=== PATIENT | female | born 1960 | race Caucasian/White ===

== ENCOUNTER 2018-09-04 11:53 | Day surgery (SDC) | payer BC, SELFPAY ==
[2018-09-04 12:20] LABS: Hematocrit 41.1 % (37-47); Hemoglobin 13.6 g/dl (12.0-15.0); Mean Corp Hgb Conc 33.1 g/gl (32-36); Mean Corpuscular Volume 84.7 fL (81-99); Mean Platelet Vol. 9.4 fl (6.2-12.0); Platelet Count 310 K/mm3 (150-450); RBC Distribution Width CV 13.1 % (11.6-14.6); RBC Distribution Width SD 40.2 fl (35.1-43.9); Red Blood Count 4.85 M/mm3 (4.2-5.4); White Blood Count 7.9 K/mm3 (4.4-11.0)
[2018-09-04 12:22] VITALS: BP 140/78; PULSE 90; RESP 16; TEMP 37.3; O2SAT 99; BMI 29.5
[2018-09-04] MEDS: Acetaminophen 500 MG Tablet 1000 MG PO (12:29)
[2018-09-04 12:31] LABS: Scan Indicated on CBC? Y/N NO
--- NOTE | 2018-09-04 13:35 | EMB_PTH ---
PATIENT: AMARJIT SPENCER LOC: [facility] [place] U#:[id number] AGE/SX: 58/F ROOM: RE09/04/[address]: Dr. Nuris Gutiérrez MD : [id number] BED: DIS: 09/04/2018 SPEC #: [id number] RECD: 09/05/18 10:22 STATUS: JULES FRANC #: [id number] VISHNU: 09/04/18 13:[address]: Nuris Gutiérrez DEPT: SURGICAL PATHOLOGY RECD BY: Levon Santiago ENTERED: 09/05/18 11:59 SP TYPE: ENDOM BX/C YAHIR DR: Dr. Wenceslao Hernández, DO Tissues: Endometrium, NOS Procedures: Surgery Specimen Level IV HEADER OPERATION: Hysteroscopy, dilation and curettage PRE-OP DIAGNOSIS: Postmenopausal bleeding TISSUE SUBMITTED: Endometrial curettings MICROSCOPIC DIAGNOSIS Endometrial curettings: Fragments of benign ectocervical epithelium with mild acute and chronic inflammation. See comment. SJ:benjamín 09/08/18 COMMENT Endometrial tissue is not identified in the submitted specimen. Correlation with clinical findings and appropriate follow up are necessary. MICROSCOPIC DESCRIPTION Slides are reviewed. GROSS DESCRIPTION Received in fixative is one container labeled with the patient's name and designated endometrial curettings. The specimen consists of multiple minute fragments of light herring soft tissue that in aggregate measure 0.6 x 0.5 x <0.1 cm. The specimen is totally submitted in one cassette. / AM:benjamín 09/05/18 TC:can not code CPT: 31304
--- NOTE | 2018-09-04 15:51 | PCM.DC.D&C ---
Discharge Diet: No Restrictions Discharge Activity: Return to Normal Activity, May Shower, May Take a Tub Bath - in 2 weeks. Allergies/Adverse Reactions: Allergies iodine Allergy (Verified 08/28/18 08:16) Hives Penicillins [PCN] Allergy (Verified 08/28/18 08:16) Unknown shellfish derived Allergy (Verified 08/28/18 08:16) Hives Medications to take at Discharge Aspirin [Aspirin, Baby] 81 mg PO QHS 08/28/18 Atenolol [Tenormin] 25 mg PO QHS 08/28/18 Biotin 800 mcg PO DAILY 08/28/18 Diazepam [Valium] 5 mg PO Q8 PRN 08/28/18 Lisinopril 20 mg PO QHS 08/28/18 Loratadine [Claritin] 10 mg PO DAILY 08/28/18 Multivitamin [Multiple Vitamins] 1 each PO DAILY 08/28/18 [place]-3/Dha/Epa/Fish Oil [[place] 3 500 Softgel] 1 each PO DAILY 08/28/18 Primary Care Physician: Wenceslao Hernández DO [Primary Care Provider] - Test Results: Test results from this visit will be discussed in further detail at your follow-up appointment, if applicable. Please Follow Up With: Nuris Gutiérrez MD - [phone] When: 2-4 weeks or as needed
--- NOTE | 2018-09-04 15:52 | PCM.OPRPT ---
Report of Operation Date of Procedure: 09/04/18 Pre-Operative Diagnosis: Postmenopausal bleeding Post-Operative Diagnosis: Postmenopausal bleeding Surgery/Procedure Performed:: Hysteroscopy dilation and curettage Description of Surgical Findings:: Normal-appearing cervix and vagina. Anteverted uterus. Normal-appearing endometrial cavity. product design engineer: Simran CONTE Type of Anesthesia:: MAC/Supplemental/Local Special Medications: none Specimen's removed: endometrial curettings Drains: none Estimated Blood Loss (mL): 10 Fluids Replaced: 500cc LR Description of Procedure: The patient was taken to the OR where she was prepped and draped in dorsal lithotomy position. The weighted speculum was placed in the vagina and the anterior lip of the cervix was grasped with a single-tooth tenaculum. A paracervical block was administered with 1% lidocaine with 1-100,000 epinephrine solution. The cervix was dilated serially with Hegar dilators. The 5mm hysteroscope was placed into the uterine cavity and the above findings were noted. Bilateral tubal ostia were identified. The hysteroscope was removed. A gentle sharp curettage was done of the uterine cavity. The instruments were removed from the vagina. The specimen was handed off and sent to pathology. All sponge and needle counts were correct. Vaginal sweep was performed by me. The patient was awakened and taken to the recovery room in stable condition. PRXhion fluid management system was used and the fluid deficit was calculated to be 0 cc of normal saline Findings: Endometrial cavity: Normal, no fibroids or polyps noted Cervix: Normal Vagina: Normal Grafts/Implants Used: none - Complications none - Admit VTE Documentation VTE Present on Admission: No VTE Mechan Device Prophylaxis: SCD's VTE Pharm Prophylaxis ordered?: No Reason prophylaxis not ordered:: Procedure Not Indicated
--- NOTE | 2018-09-04 16:04 | OP.PCM_ITS ---
Report of Operation Date of Procedure: 09/04/18 Pre-Operative Diagnosis: Postmenopausal bleeding Post-Operative Diagnosis: Postmenopausal bleeding Surgery/Procedure Performed:: Hysteroscopy dilation and curettage Description of Surgical Findings:: Normal-appearing cervix and vagina. Anteverted uterus. Normal-appearing endometrial cavity. custom grinder: Simran CONTE Type of Anesthesia:: MAC/Supplemental/Local Special Medications: none Specimen's removed: endometrial curettings Drains: none Estimated Blood Loss (mL): 10 Fluids Replaced: 500cc LR Description of Procedure: The patient was taken to the OR where she was prepped and draped in dorsal lithotomy position. The weighted speculum was placed in the vagina and the anterior lip of the cervix was grasped with a single-tooth tenaculum. A paracervical block was administered with 1% lidocaine with 1-100,000 epinephrine solution. The cervix was dilated serially with Hegar dilators. The 5mm hysteroscope was placed into the uterine cavity and the above findings were noted. Bilateral tubal ostia were identified. The hysteroscope was removed. A gentle sharp curettage was done of the uterine cavity. The instruments were removed from the vagina. The specimen was handed off and sent to pathology. All sponge and needle counts were correct. Vaginal sweep was performed by me. The patient was awakened and taken to the recovery room in stable condition. Dragon Port[place]ion fluid management system was used and the fluid deficit was calculated to be 0 cc of normal saline Findings: Endometrial cavity: Normal, no fibroids or polyps noted Cervix: Normal Vagina: Normal Grafts/Implants Used: none - Complications none - Admit VTE Documentation VTE Present on Admission: No VTE Mechan Device Prophylaxis: SCD's VTE Pharm Prophylaxis ordered?: No Reason prophylaxis not ordered:: Procedure Not Indicated
[2018-09-04 16:10] VITALS: BP 116/73; BP 140/78; PULSE 96; RESP 16; TEMP 37.4; O2SAT 96
[2018-09-04 16:15] VITALS: BP 122/80; BP 140/78; PULSE 92; RESP 16; O2SAT 97
[2018-09-04 16:20] VITALS: BP 126/76; BP 140/78; PULSE 94; RESP 16; O2SAT 98
[2018-09-04 16:25] VITALS: BP 121/77; BP 140/78; PULSE 92; RESP 16; TEMP 36.7; O2SAT 96
[2018-09-04] MEDS: Ketorolac 30 MG/ML Syringe IV (16:52)
[2018-09-04 17:10] VITALS: BP 140/78
== END 2018-09-04 17:20 | disposition home or self-care (01) ==
LOC: SDC 11:54 → AC 11:57
PROVIDERS: Family Provider Student in an Organized Health Care Education/Training Program; PCP Student in an Organized Health Care Education/Training Program; Referring Provider Obstetrics & Gynecology; Visit Provider Obstetrics & Gynecology
PROC: 0UDB8ZZ Extraction of Endometrium, Via Natural or Artificial Opening Endoscopic (ICD-10-PCS; CPT 58558; principal; 2018-09-04 13:25)
DX: N95.0 Postmenopausal bleeding (principal); I10 Essential (primary) hypertension; E78.5 Hyperlipidemia, unspecified; F41.9 Anxiety disorder, unspecified; Z79.82 Long term (current) use of aspirin; Z79.899 Other long term (current) drug therapy; Z86.73 Personal history of transient ischemic attack (TIA), and cerebral infarction without residual deficits
CPT/HCPCS: 00952; 58558; 85027; 88305; J7120; J2405

== ENCOUNTER 2018-11-30 00:26 | Emergency (ER) | payer BC, SELFPAY ==
[2018-11-30 00:27] VITALS: BP 169/89; PULSE 86; RESP 16; TEMP 36.8; O2SAT 98; BMI 31.0
--- NOTE | 2018-11-30 00:28 | EKG12_ITS ---
Test Reason : LT SHOD Blood Pressure : / mmHG Vent. Rate : 091 BPM Atrial Rate : 091 BPM P-R Int : 154 ms QRS Dur : 080 ms QT Int : 386 ms P-R-T Axes : 050 -13 020 degrees QTc Int : 474 ms Normal sinus rhythm Nonspecific T wave abnormality Prolonged QT Abnormal ECG Confirmed by SANDIE HARRIS, BRAYAN ([id number]), assistant film editor NANI DE LA ROSA ([id number]) on 12/02/2018 2:36:44 PM Referred By: JUVE Confirmed By:BRAYAN HOOPER MD
[2018-11-30 01:00] VITALS: BP 148/79; PULSE 80; RESP 16; O2SAT 99
--- NOTE | 2018-11-30 01:03 | RAD_ITS ---
HISTORY: LEFT SHOULDER PAIN COMPARISON: None FINDINGS: EKG leads in place. XR left shoulder 4 views No fracture or dislocation. Degenerative arthritis with mild marginal spurring of the inferior medial left humeral head. Possible 5 mm loose body within the inferior joint space. Possible subchondral cyst of the left glenoid. The left AC joint appears preserved. RAD/Shoulder min 2 Views IMPRESSION: 1. No fracture or acute osseous abnormality. 2. 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 at 0134 Reported and signed by: Ponce Arrington MD Electronically Signed: Ponce Arrington, at 1:33 EST Tel , Service support ,
--- NOTE | 2018-11-30 01:13 | RAD_ITS ---
HISTORY: CHEST PAIN EXAM: XR Chest 2 Views: COMPARISON: None FINDINGS: EKG leads in place. Normal heart size. No vascular congestion, pleural effusion, or acute pulmonary infiltration. Atherosclerotic thoracic aorta. No pneumothorax. The bony thorax appears intact. RAD/Chest PA and Lateral IMPRESSION: No acute cardiopulmonary disease. at 0145 Reported and signed by: Ponce Arrington MD Electronically Signed: Ponce Arrington, at 1:44 EST Tel , Service support ,
[2018-11-30 01:24] LABS: Absolute Lymphocyte Count 2.67 X10^3/ul (0.83-4.51); Absolute Neutrophil Count 4.2 X10^3/uL (2.0-7.7); Basophil# 0.04 X10^3/uL; Basophil% 0.5 % (0-1); Eosinophil# 0.26 X10^3/uL; Eosinophils% 3.4 % (0-5); Hematocrit 39.6 % (37-47); Hemoglobin 13.2 g/dl (12.0-15.0); Lymphocyte # 2.67 X10^3/ul (4.0); Lymphocyte % 34.8 % (19-41); Mean Corp Hgb Conc 33.3 g/gl (32-36); Mean Corpuscular Hgb 28.5 pg (27.0-32.0); Mean Corpuscular Volume 85.5 fL (81-99); Mean Platelet Vol. 9.5 fl (6.2-12.0); Monocyte# 0.49 X10^3/uL; Monocyte% 6.4 % (0-10); Neutrophil # 4.19 X10^3/uL (2.7-7.7); Neutrophil % 54.6 % (47-70); POSITIVE COUNT NO; POSITIVE DIFFERENTIAL NO; POSITIVE MORPHOLOGY NO; Platelet Count 258 K/mm3 (150-450); RBC Distribution Width CV 12.9 % (11.6-14.6); RBC Distribution Width SD 39.2 fl (35.1-43.9); Red Blood Count 4.63 M/mm3 (4.2-5.4); White Blood Count 7.7 K/mm3 (4.4-11.0)
[2018-11-30 01:41] LABS: Anion Gap 9 (5-15); BUN 17 mg/dL (7-18); BUN/Creat Ratio 20.4 RATIO (10-20); Calcium,Total 9.2 mg/dL (8.5-10.1); Chloride 105 mmol/L (98-107); Creatinine, Serum 0.83 mg/dL (0.55-1.02); EST Glomerular Filtration Rate 75 mL/min (>60); Est Glom Filt Rate - Afr Amer 91 mL/min (>60); Estimated Creatinine Clearance 64.58 ml/min; Glucose 118 mg/dL (74-106); Potassium 4.2 mmol/L (3.5-5.1); Sodium Level 141 mmol/L (136-145)
--- NOTE | 2018-11-30 01:57 | ED.VISSUMM ---
- ER Visit Summary Date of Service: 11/30/18 Chief Complaint: Left shoulder pain History of Present Illness: The patient is a 58 F who presents with left shoulder pain. This is been present for 2 days. Is worse with movement. It is difficult to reach above her head and this increases pain. She notes that on Saturday she drug heavy artificial [place] tree up the stairs. She did take naproxen with some relief. She is normally able to do 2-1/2 miles on a treadmill. She states she only gets a little short of breath with significant exertional activity such as carrying a box of laundry up the steps. No chest pain. However today she developed some upset stomach and diarrhea. She was concerned this may be atypical presentation of her heart given that she is a woman so presented here for evaluation. Physical Examination: Afebrile vitals notable for blood pressure 169/89 otherwise normal Moist mucous members Neck supple Heart regular rate and rhythm Lungs are clear Abdomen soft Extremity is nontender without distribution of the trapezius she has pain with abduction of the shoulder Test Results: EKG shows sinus rhythm at a rate of 91. CBC BMP normal. Troponin negative. Chest x-ray shows no acute process. Shoulder x-ray shows mild osteoarthritis and questionable intra-articular loose body. Emergency Department Course and Treatment: I do believe this is most likely due to a musculoskeletal etiology. However patient was concerned this may be atypical presentation of cardiac pathology so I did obtain laboratory studies which were normal. She was advised on supportive care. She was advised to follow-up with her primary care physician. She was discharged. Treatment Plan: [] Disposition: Discharge Impression: Left shoulder pain Diarrhea This note was generated with [employer] dictation software. It may contain incorrect words, spelling, and punctuation that were not noted in review of the chart prior to signing ED Disposition - Plan for ED Patient: Chief Complaint: Back Referrals: Wenceslao Hernández DO [Primary Care Provider] -
--- NOTE | 2018-11-30 01:59 | ED.DEP ---
ED Disposition - Plan for ED Patient: Chief Complaint: Back Instructions: ED Shoulder Pain [facility] Referrals: Wenceslao Hernández DO [Primary Care Provider] -
[2018-11-30] MEDS: HYDROcodone Bitartrate/Apap 5/325 Tablet PO (02:12)
[2018-11-30 02:14] VITALS: BP 122/80; PULSE 79; RESP 16; O2SAT 97
== END 2018-11-30 02:14 | disposition home or self-care (01) ==
LOC: ED 01:04
PROVIDERS: Emergency Provider Emergency Medicine; Family Provider Student in an Organized Health Care Education/Training Program; PCP Student in an Organized Health Care Education/Training Program
DX: M25.512 Pain in left shoulder (principal); R19.7 Diarrhea, unspecified; I10 Essential (primary) hypertension; Z86.73 Personal history of transient ischemic attack (TIA), and cerebral infarction without residual deficits; Z79.82 Long term (current) use of aspirin; Z79.899 Other long term (current) drug therapy
CPT/HCPCS: 36415; 71046; 73030; 80048; 84484; 85025; 93005; 99282

== ENCOUNTER 2021-01-17 08:00 | Outpatient (RCR) | payer BC, SELFPAY ==
[2021-01-17] MEDS: COVID-19 VACC, MRNA(PFIZER)/PF 30 MCG/0.3 ML SYRINGE IM (13:05)
[2021-02-07] MEDS: COVID-19 VACC, MRNA(PFIZER)/PF 30 MCG/0.3 ML SYRINGE IM (12:57)
== END 2021-01-17 23:59 ==
LOC: IMMUN 08:00
PROVIDERS: PCP Student in an Organized Health Care Education/Training Program; Visit Provider Family Medicine
DX: Z23 Encounter for immunization (principal)
CPT/HCPCS: 0001A; 0002A; 91300